=== PATIENT | female | born 1960 | race Caucasian/White ===

== ENCOUNTER → 2020-04-22 09:45 | Outpatient (CLI) | payer OTHER, SELFPAY | PROVIDERS: PCP Family Medicine; Referring Provider Family Medicine; Visit Provider Family Medicine | DX: Z20.828 Contact with and (suspected) exposure to other viral communicable diseases (principal) | CPT/HCPCS: 87635; C9803; U0003 ==

== ENCOUNTER 2020-09-25 12:27 | Emergency (ER) | payer OTHER, SELFPAY ==
[2020-09-25 12:29] VITALS: BP 151/82; PULSE 82; RESP 16; TEMP 36.9; O2SAT 98; BMI 37.4
--- NOTE | 2020-09-25 12:52 | CT_ITS ---
STUDY: CT ABDOMEN AND PELVIS WITH CONTRAST REASON FOR EXAM: Female, 60 years old. Abdominal pain RADIATION DOSAGE (If Supplied By Facility): CTDIvol = ( 16.59 ) mGy, DLP = ( 1150.83 ) mGycm TECHNIQUE: CT images were obtained from the dome of the diaphragm to the symphysis pubis without oral contrast. Oral and amp; IV Gastrografin and amp; 100mL Isovue-370 was administered. Sagittal and coronal images were reconstructed. Individualized dose optimization techniques were used for this CT. COMPARISON: None. FINDINGS: The visualized lung bases are unremarkable. The visualized portions of the heart are within normal limits. Normal liver with a benign 1 cm cyst in segment 8. Gallbladder is removed. Normal spleen. Normal pancreas. Normal bilateral adrenal glands. Normal right kidney. Normal left kidney. There is no intestinal obstruction. There is moderately extensive diverticulitis of the proximal sigmoid without abscess. Appendix is not seen. Normal abdominal aorta. Normal inferior vena cava. Normal retroperitoneum. Normal urinary bladder. Normal abdominal wall. 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 CT/Abdomen/Pelvis WITH Contrast IMPRESSION: Sigmoid diverticulitis without abscess. Electronically Signed: Rhonda Neely MD at 15:38 EDT Tel , Service support ,
--- NOTE | 2020-09-25 12:55 | ED.DCSUM_ITS ---
- ER Visit Summary Date of Service: 09/25/20 Chief Complaint: Abdominal pain History of Present Illness: The patient is a 60 F who presents with lower abdominal pain that began yesterday. Patient states it is gradually gotten worse. Patient states the pain is been constant. Patient states the pain is mostly aching. Patient states it has been sharp at times. Patient states it is worse with urination and worse when she has a bowel movement. Patient admits to nausea but denies any vomiting. Patient denies any hematemesis. Patient denies any diarrhea, melena, or hematochezia. Patient states she has pain in her lower abdomen when she urinates. Patient denies any hematuria or urinary frequency. Patient states she felt like she had a fever yesterday. Patient states the pain radiates into her back. Patient states she thought she was having a urinary tract infection and went to urgent care. Patient was then referred to the emergency department. Physical Examination: Vital signs are stable. Patient is afebrile. Patient is in no acute distress. Oral mucosa is pink and moist. Neck is supple. Trachea is midline. There is no JVD. Heart was regular rate and rhythm. Lungs are clear and equal bilaterally. Abdomen is soft. Bowel sounds are normal. There is diffuse tenderness but worse in the lower abdomen. There is no rebound or guarding noted. Cranial nerves II through XII are intact. There are no focal motor or sensory deficits noted. Test Results: CBC and comprehensive metabolic profile were obtained and were essentially within normal limits. Urinalysis was normal. Lipase was normal. CT scan of the abdomen and pelvis was obtained. There is diverticulitis of the sigmoid colon. There is no abscess or perforation. This was interpreted by the radiologist and reviewed by myself. Emergency Department Course and Treatment: Patient was given IV fluids, morphine, and Zofran. She was feeling better on reevaluation. Patient was given a dose of Cipro and Flagyl here. Patient was given prescriptions for Cipro and Flagyl. Patient was instructed to follow-up with her primary care physician in 5 to 7 days. Patient understood and was agreeable with the plan. All questions were answered. Disposition: Discharge home Impression: 1. Acute diverticulitis This note was generated with [facility] software. It may contain incorrect words, spelling, and punctuation that were not noted in review of the chart prior to signing ED Disposition - Plan for ED Patient: Disposition: Home or Assisted Living Diagnosis: Diverticulitis Instructions: ED Diverticulitis Prescriptions: Ciprofloxacin [Cipro] 500 mg PO BID #20 tab Transmission Status: Pending to [id number] metroNIDAZOLE [Flagyl] 500 mg PO Q6H #40 tablet Transmission Status: Pending to [facility]/pharmacy #[id number] Referrals: Ant Duval III, MD [Primary Care Provider] - 5-7 Days
[2020-09-25] MEDS: 0.9% Normal Saline 1,000 ML 1000 ML IV (13:02)
[2020-09-25] MEDS: Morphine 4 MG/ML Syringe IV (13:02)
[2020-09-25] MEDS: Ondansetron 4 MG/2 ML Vial IV (13:02)
[2020-09-25 13:07] LABS: Absolute Lymphocyte Count 1.81 X10^3/uL (0.83-4.51); Absolute Neutrophil Count 7.3 X10^3/uL (2.0-7.7); Basophil# 0.02 X10^3/uL; Basophil% 0.2 % (0-1); Eosinophil# 0.14 X10^3/uL; Eosinophils% 1.4 % (0-5); Hematocrit 39.6 % (37-47); Lymphocyte # 1.81 X10^3/ul (4.0); Lymphocyte % 18.4 % (19-41); Mean Corp Hgb Conc 32.8 g/dL (32-36); Mean Corpuscular Hgb 28.7 pg (27.0-32.0); Mean Corpuscular Volume 87.4 fL (81-99); Mean Platelet Vol. 10.9 fl (6.2-12.0); Monocyte# 0.56 X10^3/uL; Monocyte% 5.7 % (0-10); NRBC Flagged by Analyzer 0 % (0-5); Neutrophil # 7.28 X10^3/uL (2.7-7.7); Neutrophil % 73.8 % (47-70); Platelet Count 179 K/mm3 (150-450); RBC Distribution Width CV 13.1 % (11.6-14.6); RBC Distribution Width SD 42.3 fl (35.1-43.9); Red Blood Count 4.53 M/mm3 (4.2-5.4); White Blood Count 9.9 K/mm3 (4.4-11.0)
[2020-09-25 13:23] LABS: AST(SGOT) 9 U/L (15-37); Alanine Aminotransfer ALT/SGPT 21 U/L (13-56); Albumin, Serum 3.6 g/dL (3.2-5.0); Alkaline Phosphatase 75 U/L (45-117); Anion Gap 8 (5-15); BUN 9 mg/dL (7-18); BUN/Creat Ratio 12.9 RATIO (10-20); Chloride 107 mmol/L (98-107); EST Glomerular Filtration Rate 91 mL/min (>60); Est Glom Filt Rate - Afr Amer 110 mL/min (>60); Estimated Creatinine Clearance 64.49 ml/min; Globulin 3.6 g/dL (2.2-4.2); Glucose 106 mg/dL (74-106); Lipase 69 U/L (73-393); Potassium 3.6 mmol/L (3.5-5.1); Protein, Total 7.2 g/dL (6.4-8.2); Sodium Level 142 mmol/L (136-145)
[2020-09-25 14:24] LABS: Bacteria 0 SEEN /hpf (None Seen); Mucous, Urine 0 SEEN /hpf (<or=2+); Red Blood Cells-Urine 0 SEEN /hpf (0-5); Squamous Epithelial Cells - UA 0 SEEN /hpf (5-10); White Blood Cells 0 SEEN /hpf (0-5)
[2020-09-25 14:30] LABS: Color, Urine Yellow (Yellow); Glucose, Dipstick Normal (Normal); Ketone-Dipstick Negative (Negative); Leukocyte Esterase-Dipstick Negative /ul (Negative); Nitrite-Dipstick Negative (Negative); Occult Blood-Urine Negative /ul (Negative); Protein-Dipstick Negative (Negative); Urine Bilirubin Dipstick Negative (Negative); Urine Clarity Clear (Clear); Urine Urobilinogen Normal (Normal); Urine pH 6.5 (5.0 - 8.0)
[2020-09-25] MEDS: Ciprofloxacin 500 MG Tablet PO (16:33)
[2020-09-25] MEDS: metroNIDAZOLE 500 MG Tablet PO (16:33)
[2020-09-25 16:37] VITALS: BP 140/76; PULSE 66; RESP 18; TEMP 35.5
== END 2020-09-25 16:37 | disposition home or self-care (01) ==
PROVIDERS: Emergency Provider Emergency Medicine; PCP Family Medicine
DX: K57.32 Diverticulitis of large intestine without perforation or abscess without bleeding (principal); E66.9 Obesity, unspecified; I10 Essential (primary) hypertension; Z79.899 Other long term (current) drug therapy
CPT/HCPCS: 74177; 80053; 81001; 83690; 85025; 96361; 96374; 96375; 99284; J7030; Q9967; A4216; J2405

== ENCOUNTER 2022-09-30 12:53 | Emergency (ER) | payer OTHER, SELFPAY ==
[2022-09-30 12:54] VITALS: BP 172/82; PULSE 103; RESP 18; TEMP 36.4; O2SAT 96; BMI 38.4
--- NOTE | 2022-09-30 13:04 | CT_ITS ---
STUDY: CT Abdomen And Pelvis W/ Contrast Injection 09/30/2022 3:07 PM REASON FOR EXAM: Female, 62 years old. LOWER ABD PAIN. PT SEEN AT URGENT CARE FOR POSSIBLE UTI pain llq abdominal pain Individualized dose optimization techniques were used for this CT. COMPARISON: 09.25.20. TECHNIQUE: CT Abdomen And Pelvis W/ Contrast Injection IV 100mL Isovue-370 FINDINGS: There are atherosclerotic calcifications of visualized coronary arteries. The visualized portions of the heart are within normal limits. Stable hypodensity of the right lobe of the liver. There are surgical clips in the gallbladder fossa consistent with a prior cholecystectomy. Normal spleen. Normal pancreas. Normal bilateral adrenal glands. No acute findings of the right kidney. No acute findings of the left kidney. Normal visualized stomach. Normal small intestine. There is diverticulosis, with thickening of the colon wall, and pericolonic inflammation changes consistent with acute diverticulitis. This is near the recto sigmoid anastomosis. There is non-visualization of the appendix. There are calcifications of the abdominal aorta. This is consistent for atherosclerotic disease. There is NO abdominal aortic aneurysm. Vascular workup can be obtained based on clinical correlation. Normal inferior vena cava. Subcentimeter mesenteric lymph nodes. Normal urinary bladder. Normal visualized uterus.Two screws in the left acetabulum. There is an umbilical hernia containing fat. There are diffuse degenerative changes of the visualized lumbar spine. There is bilateral neural foraminal stenosis at L4-5 and L5-S1. CT/Abdomen/Pelvis W IV Cont ONLY IMPRESSION: (NOT LISTED IN ORDER OF SIGNIFICANCE) There is acute diverticulitis of the sigmoid colon. Other findings as above. Electronically Signed: Mike Quezada MD at 15:12 EDT ,
--- NOTE | 2022-09-30 13:06 | EDS_ITS ---
HPI HPI - GI History of Present Illness Chief Complaint: Abd Pain Narrative Narrative: 62-year-old female presenting with abdominal pain. She states that the lower abdominal and its in the middle. She has a history of recurrent diverticulitis in the past. She has had partial colectomy of the segment. She reports that she has had C. difficile since that surgery. She states that surgery was performed with Dr. carlos. She has not had any diarrhea or constipation. No fever. She does feel like she has the chills. Patient states she can was concerned she had a UTI and went to urgent care where they tested her urine and stated she did not have a UTI. She was referred to the ER due to ongoing abdominal pain [facility] Home Medications atorvastatin 20 mg tablet 20 mg PO QHS 05/31/16 [History Last Taken 05/30/16 22:00] aspirin 81 mg chewable tablet 81 mg PO DAILY@0800 09/25/20 [History Last Taken Unknown] ciprofloxacin HCl 500 mg tablet 500 mg PO BID #20 TABLETS 09/25/20 [Rx Last Taken Unknown] estradiol 1 mg tablet 1 mg PO DAILY 09/25/20 [History Last Taken Unknown] losartan 25 mg tablet 25 mg PO BID 09/25/20 [History Last Taken Unknown] medroxyprogesterone 2.5 mg tablet 2.5 mg PO DAILY 09/25/20 [History Last Taken Unknown] metronidazole 500 mg tablet 500 mg PO Q6H #40 tabs 09/25/20 [Rx Last Taken Unknown] sertraline 100 mg tablet 100 mg PO QHS 09/25/20 [History Last Taken Unknown] vitamin B complex 1 tablet PO DAILY 09/25/20 [History Last Taken Unknown] ciprofloxacin HCl 500 mg tablet (Cipro) 500 mg PO BID #20 tabs 09/30/22 [Rx Last Taken Unknown] metronidazole 500 mg tablet 500 mg PO Q8H 10 days #30 tabs 09/30/22 [Rx Last Taken Unknown] Allergy/AdvReac Type Severity Reaction Status Date / Time acetaminophen AdvReac Vomiting Verified 09/30/22 12:56 [From Darvocet-N] codeine AdvReac Nausea Verified 09/30/22 12:56 lisinopril AdvReac Other Verified 09/30/22 12:56 nabumetone [From Relafen] AdvReac Upset Verified 09/30/22 12:56 Stomach propoxyphene napsylate AdvReac Vomiting Verified 09/30/22 12:56 [From Brittanyt-N] Social History Smoking Status: Former smoker ROS ROS ED Constitutional Constitutional ED: Reports chills; Denies fever(s) ENT ENT ED: Denies rhinorrhea or sore throat Cardiovascular Cardiovascular: Denies chest pain or palpitations Respiratory/Chest Respiratory/Chest: Denies cough or dyspnea Gastrointestinal Gastrointestinal: Reports abdominal pain; Denies constipation, diarrhea, nausea or vomiting Genitourinary Genitourinary ED: Denies dysuria Musculoskeletal Musculoskeletal: Denies arthralgias Integumentary Denies abscess or Abrasions Neurologic Neurologic: Denies headache(s) or paresthesias Psychiatric Psychiatric: Denies anxiety or depression EXAM Physical Exam Const Vital Signs: 09/30/22 12:54 09/30/22 15:25 Temperature 97.6 F L Temperature Source Temporal Pulse Rate 103 H 96 Respiratory Rate 18 18 Blood Pressure 172/82 H 142/70 H Blood Pressure Mean 112 94 Pulse Ox 96 98 Oxygen Delivery Method Room Air Room Air Positive well nourished General Appearance ED: NAD HEENT Reports moist mucous membranes normocephalic and atraumatic Eyes PERRL and EOMs intact bilaterally Resp normal respiratory effort Cardio regular rate Rate: tachycardic GI Palpation: tender periumbilical and other (Suprapubic) Back/Spine no CVA tenderness Neuro CN's II-XII intact bilaterally and moves all extremities Motor Exam: strength 5/5 throughout Psych mental status grossly normal Skin no wounds MDM MDM MDM Narrative Medical decision making narrative: Patient presenting with lower abdominal pain. Differential includes but is not limited to appendicitis, diverticulitis, small bowel obstruction, constipation, urinary tract infection. IV was established. Patient given 1 L normal saline patient is tachycardic. Morphine and Zofran were given. CBC to assess white blood cell count, hemoglobin, platelets, differential. CMP to assess liver function, renal function, glucose, anion gap, electrolytes. Urinalysis to assess for UTI. Patient will need a CT scan of the abdomen pelvis. CBC CBC within normal limits. CMP shows slight hypokalemia with potassium 3.3. Total bilirubin slightly elevated 1.6. Other LFTs are normal. CT of the abdomen pelvis shows uncomplicated diverticulitis. Patient states she usually has to use Cipro and Flagyl because Augmentin does not work. She was started on this in the ED. Return precautions were discussed. Impression: 1. Acute diverticulitis Lab Data Labs: Laboratory Results - last 24 hr 09/30/22 09/30/22 09/30/22 13:10 13:35 13:35 WBC 9.0 RBC 4.54 Hgb 12.8 Hct 39.1 MCV 86.1 MCH 28.2 MCHC 32.7 RDW Std Deviation 42.9 RDW Coeff of Kourtney 13.7 Plt Count 160 MPV 10.7 Immature Gran % (Auto) 0.400 Neut % (Auto) 83.5 H Lymph % (Auto) 10.3 L Vilas % (Auto) 4.7 Eos % (Auto) 0.9 Baso % (Auto) 0.2 Absolute Neuts (auto) 7.5 Absolute Lymphs (auto) 0.92 Nucleated RBC % 0 Sodium 138 Potassium 3.3 L Chloride 105 Carbon Dioxide 28.0 Anion Gap 5 BUN 8 Creatinine 0.64 Estim Creat Clear Calc 68.77 Est GFR (MDRD) Af Amer 120 Est GFR (MDRD) Non-Af 99 BUN/Creatinine Ratio 12.4 Glucose 101 Calcium 9.0 Total Bilirubin 1.60 H AST 11 L ALT 23 Alkaline Phosphatase 78 Total Protein 7.3 Albumin 4.0 Globulin 3.3 Albumin/Globulin Ratio 1.2 Urine Color Yellow Urine Clarity Clear Urine pH 7.0 Ur Specific Haiku 1.010 Urine Protein Negative Urine Glucose (UA) Normal Urine Ketones Negative Urine Occult Blood Negative Urine Nitrite Negative Urine Bilirubin Negative Urine Urobilinogen Normal Ur Leukocyte Esterase Negative Urine RBC 0 SEEN Urine WBC 0 SEEN Ur Squamous Epith Cells 5-10 SEEN Urine Bacteria 0 SEEN Urine Mucus 0 SEEN Radiography Diagnostic Testing: Clinical Impression(s) from Imaging Studies Abdomen/Pelvis CT 09/30/22 13:04 IMPRESSION: (NOT LISTED IN ORDER OF SIGNIFICANCE) There is acute diverticulitis of the sigmoid colon. Other findings as above. Electronically Signed: Mike Quezada MD at 15:12 EDT , Discharge Plan Triage Chief Complaint: Abd Pain ED Provider: Gordy Parker Dx/Rx/DC Orders Clinical Impression: Diverticulitis Instructions: ED Diverticulitis Prescriptions: New ciprofloxacin HCl [Cipro] 500 mg tablet 500 mg PO BID Qty: 20 0RF metronidazole 500 mg tablet 500 mg PO Q8H 10 Days Qty: 30 0RF No Action atorvastatin 20 MG tablet 20 mg PO QHS Label Comments: Cholesterol medroxyprogesterone 2.5 MG tablet 2.5 mg PO DAILY sertraline 100 MG tablet 100 mg PO QHS estradiol 1 MG tablet 1 mg PO DAILY losartan 25 MG tablet 25 mg PO BID aspirin 81 MG tablet,chewable 81 mg PO DAILY@0800 vitamin B complex 1 EACH capsule 1 tablet PO DAILY ciprofloxacin HCl 500 MG tablet 500 mg PO BID Qty: 20 0RF metronidazole 500 MG tablet 500 mg PO Q6H Qty: 40 0RF Primary Care Provider: Harish Osborne Referrals: Alexandro Carlos MD [Med Staff - Active Staff] - 3-5 Days Harish Osborne MD [Primary Care Provider] - Disposition Disposition: Home, Self Care Discharge Date/Time: 09/30/22 16:23
[2022-09-30 13:14] LABS: Bacteria 0 SEEN /hpf (None Seen); Mucous, Urine 0 SEEN /hpf (<or=2+); Red Blood Cells-Urine 0 SEEN /hpf (0-5); White Blood Cells 0 SEEN /hpf (0-5)
[2022-09-30] MEDS: Morphine 4 MG/ML Syringe IV (13:16)
[2022-09-30] MEDS: Ondansetron 4 MG/2 ML Vial IV (13:16)
[2022-09-30] MEDS: 0.9% Normal Saline 1,000 ML 1000 ML IV (13:18)
[2022-09-30 13:20] LABS: Color, Urine Yellow (Yellow); Glucose, Dipstick Normal (Normal); Ketone-Dipstick Negative (Negative); Leukocyte Esterase-Dipstick Negative /ul (Negative); Nitrite-Dipstick Negative (Negative); Occult Blood-Urine Negative /ul (Negative); Protein-Dipstick Negative (Negative); Urine Bilirubin Dipstick Negative (Negative); Urine Clarity Clear (Clear); Urine Urobilinogen Normal (Normal)
[2022-09-30 13:26] LABS: Squamous Epithelial Cells - UA 5-10 SEEN /hpf (5-10)
[2022-09-30 13:43] LABS: Absolute Lymphocyte Count 0.92 X10^3/uL (0.83-4.51); Absolute Neutrophil Count 7.5 X10^3/uL (2.0-7.7); Basophil# 0.02 X10^3/uL; Basophil% 0.2 % (0-1); Eosinophil# 0.08 X10^3/uL; Eosinophils% 0.9 % (0-5); Hematocrit 39.1 % (37-47); Hemoglobin 12.8 g/dL (12.0-15.0); Lymphocyte # 0.92 X10^3/ul (0.83-4.51); Lymphocyte % 10.3 % (19-41); Mean Corp Hgb Conc 32.7 g/dL (32-36); Mean Corpuscular Hgb 28.2 pg (27.0-32.0); Mean Corpuscular Volume 86.1 fL (81-99); Mean Platelet Vol. 10.7 fl (6.2-12.0); Monocyte# 0.42 X10^3/uL; Monocyte% 4.7 % (0-10); NRBC Flagged by Analyzer 0 % (0-5); Neutrophil # 7.47 X10^3/uL (2.7-7.7); Neutrophil % 83.5 % (47-70); Platelet Count 160 K/mm3 (150-450); RBC Distribution Width CV 13.7 % (11.6-14.6); RBC Distribution Width SD 42.9 fl (35.1-43.9); Red Blood Count 4.54 M/mm3 (4.2-5.4)
[2022-09-30 13:55] LABS: ALB/GLOB Ratio 1.2 RATIO (0.9-2.4); AST(SGOT) 11 U/L (15-37); Alanine Aminotransfer ALT/SGPT 23 U/L (13-56); Alkaline Phosphatase 78 U/L (45-117); Anion Gap 5 (5-15); BUN 8 mg/dL (7-18); BUN/Creat Ratio 12.4 RATIO (10-20); Chloride 105 mmol/L (98-107); Creatinine, Serum 0.64 mg/dL (0.55-1.02); EST Glomerular Filtration Rate 99 mL/min (>60); Est Glom Filt Rate - Afr Amer 120 mL/min (>60); Estimated Creatinine Clearance 68.77 ml/min; Globulin 3.3 g/dL (2.2-4.2); Glucose 101 mg/dL (74-106); Potassium 3.3 mmol/L (3.5-5.1); Protein, Total 7.3 g/dL (6.4-8.2); Sodium Level 138 mmol/L (136-145)
[2022-09-30 15:25] VITALS: BP 142/70; PULSE 96; RESP 18; O2SAT 98
[2022-09-30] MEDS: metroNIDAZOLE 500 MG Tablet PO (16:10)
[2022-09-30] MEDS: Ciprofloxacin 500 MG Tablet PO (16:10)
== END 2022-09-30 16:23 | disposition home or self-care (01) ==
PROVIDERS: Emergency Provider Student in an Organized Health Care Education/Training Program; PCP Family Medicine; Visit Provider Student in an Organized Health Care Education/Training Program
DX: K57.32 Diverticulitis of large intestine without perforation or abscess without bleeding (principal); E87.6 Hypokalemia; Z87.891 Personal history of nicotine dependence; Z90.49 Acquired absence of other specified parts of digestive tract
CPT/HCPCS: 74177; 80053; 81001; 85025; 96361; 96374; 96375; 99284; J7030; Q9967; A4216; J2405

== ENCOUNTER 2022-12-11 08:49 | Day surgery (SDC) | payer OTHER, SELFPAY ==
[2022-12-11] VITALS (7 sets, daily range): BP systolic 106–131; BP diastolic 54–66; PULSE 18–71; RESP 16–96; TEMP 36.7–37.1; O2SAT 70–100; BMI 36.6
[2022-12-11] MEDS: Lactated Ringers 1,000 ML 15 ML IV (09:25)
--- NOTE | 2022-12-11 09:35 | PCM.HP.BLA ---
History and Physical Date of Admission: 12/11/22 [facility] Required: No Is patient in pain?: No Allergies acetaminophen [From Darvocet-N] Adverse Reaction (Verified 11/05/22 08:44) Vomitingcodeine Adverse Reaction (Verified 11/05/22 08:44) Nausealisinopril Adverse Reaction (Verified 11/05/22 08:44) Othernabumetone [From Relafen] Adverse Reaction (Verified 11/05/22 08:44) Upset Stomachpropoxyphene napsylate [From Darvocet-N] Adverse Reaction (Verified 11/05/22 08:44) Vomiting Medications atorvastatin 20 mg tablet 20 mg PO QHS 05/31/16 [History Confirmed 11/05/22] aspirin 81 mg chewable tablet 81 mg PO DAILY@0800 09/25/20 [History Confirmed 11/05/22] estradiol 1 mg tablet 1 mg PO DAILY 09/25/20 [History Confirmed 11/05/22] losartan 25 mg tablet 25 mg PO BID 09/25/20 [History Confirmed 11/05/22] medroxyprogesterone 2.5 mg tablet 2.5 mg PO DAILY 09/25/20 [History Confirmed 11/05/22] sertraline 100 mg tablet 100 mg PO QHS 09/25/20 [History Confirmed 11/05/22] vitamin B complex 1 tablet PO DAILY 09/25/20 [History Confirmed 11/05/22] cholecalciferol (vitamin D3) 50 mcg (2,000 unit) capsule 50 mcg PO DAILY 11/05/22 [History Confirmed 11/05/22] PFSH Medical History?(Updated 11/05/22 @ 08:42 by Keysha Barrera) Broken tooth-uncomplic Surgical History?(Updated 11/05/22 @ 08:42 by Keysha Barrera) S/P appendectomy S/P colectomy S/P laparoscopic cholecystectomy Status post hip surgery Family History?(Updated 11/05/22 @ 08:43 by Keysha Barrera) Aunt Breast cancerGrandmother DiabetesMother HypertensionFather Hypertension Social History? Smoking Status:? Former smoker HPI HPI HPI: 62-year-old female is being referred by Dr. Harish Osborne for surgical consultation regarding abdominal pain and a previous history of diverticulitis for which I have assisted her with a previous colectomy.? On September 30, 2022 at the [facility] she had a CT scan and evaluation of acute abdominal pain and that was felt to demonstrate diverticulitis.? At that time her white blood cell count was normal at 9 with a hemoglobin of 12.8 and hematocrit of 39.1 and a platelet count of 160,000.? There was a left shift with 83% neutrophils.? Potassium was low at 3.3.? BUN was normal at 8 and creatinine 0.64.? Urinalysis was not remarkable.? Records reveal a laparoscopic sigmoid colectomy with mobilization of the splenic flexure and a previous laparoscopic cholecystectomy dating back to April 28, 2008.? I have personally reviewed her CT images.? There is certainly evidence of transposition of her sigmoid: Now residing actually to the right of the midline.? Some inflammatory changes noted at the rectosigmoid anastomotic area.? Extensive diverticular disease of the remaining colon noted. Additionally make comment that she is got an abnormal mammogram she is supposed to establish a breast ultrasound done at the clinic She states she is immediately dropped back to clear liquids when she had the suspected diverticulitis.? She states that she is over 90% improved at this time.? The onset of the pain was September 29, 2022.? No fever.? No bright red blood per rectum or melena. ROS General General: No weight change, appetite, fatigue, colon cancer, breast cancer or weakness HEENT HEENT: No difficulty swallowing, eye injury, eye surgery, swollen glands or hoarseness Endo Endocrine: No thyroid disease, diabetes mellitus, thyroid cancer, Hair loss, heat intolerance or cold intolerance Skin Skin: No rash or changing moles Breast Breast: No left breast lump, right breast lump, nipple discharge, breast pain, abnormal mammogram, abnormal US or breast enlargement Musc Musculoskeletal: Yes arthritis; No back problems, rheumatoid arthritis, gout or joint pain Cardio Cardiovascular: Yes high blood pressure; No murmur, pacemaker, heart disease, atrial fibrillation, heart attack, heart stent, palpitations, shortness of breat with exertion or chest pain Psych Psychiatric: Yes anxiety; No depression or hearing voices Resp Respiratory: No shortness of breath, No sleep apnea, No cough, No COPD, No asthma, No emphysema and No wheezing Gastro Gastrointestinal: Yes abdominal pain, No nausea or vomiting, Yes diarrhea, Yes constipation, No blood in stool, Yes acid reflux, Yes hemorrhoids, No ulcers, No gallbladder problem and No black,tarry stools Darius Hematologic: Yes blood thinners, No blood disorders, No bleeding, No anemia and No blood clots Neuro Neurologic: No system reviewed and no additional complaints, except as documented, No as per HPI, No abnormal gait, No abnormal hearing, No abnormal movements, No abnormal speech, No behavioral changes, No burning sensations, No confusion, No convulsions, No disequilibrium, No dizziness, No localized weakness, No frequent falls, No headache(s), No lack of coordination, No loss of vision, No memory loss, Yes numbness, No other visual disturbances, No radicular pain, No restless legs, No sensory deficit, No syncope, Yes tingling, No tremor(s), No weakness and No other Exam Const General: cooperative and healthy appearing [facility] Head: normal to inspection Neck Neck: normal visual inspection Resp Effort & Inspection: normal respiratory effort Auscultation: clear to auscultation bilaterally Cardio Rate: regular rate Rhythm: regular rhythm GI Inspection: normal to inspection Palpation: soft Other: Very minimal tenderness to deep palpation suprapubically Musc Cervical Spine: normal cervical lordosis Skin General: no rashes or lesions noted Neuro General: patient alert and patient awake Assessment and Plan Assessment and Plan (1) Diverticulitis: ?Status:?Chronic (2) GERD (gastroesophageal reflux disease): ?Status:?Acute (3) Essential hypertension: ?Status:?Acute (4) Psoriasis: ?Status:?Chronic (5) Pneumonia: ?Status:?Acute Plan I recommended the patient a colonoscopy with possible biopsy or polypectomy as indicated.? We will have her hold her aspirin for 5 days.? Previous colonoscopy was over 10 years ago.? She is aware of technique, benefit, risk, alternatives.? She has had an opportunity to ask and have questions answered.? We will schedule procedure at her discretion. By report the patient states that she has had abnormal mammogram is supposed to schedule her a breast ultrasound.? I have encouraged her to do that. She does have a pelvic anastomosis.? She is instructed that for any bouts of recurrent pain she should immediately decrease to a clear liquid diet and because of the location risk-benefit level would be pertinent for her to initiate oral antibiotics at that time as well.? She is at risk for having perforation or abscess and then that likely would require a colostomy which might be temporary but also could be a permanent event. She has had an opportunity to ask and have questions answered.? We will schedule procedure at her discretion. If she needs or wants assistance with her breast she certainly can contact me at her convenience. Note that since the patient's office visit she developed acute reflux symptoms. Per her primary care she was placed on omeprazole therapy and we received contact requesting that we add a esophagogastroduodenoscopy to the patient's colonoscopy. She has had an opportunity to ask and have questions answered. We will proceed as noted. Copy: Dr. Harish Duval M.D., F.A.C.S.
--- NOTE | 2022-12-11 10:00 | EGD_PTH ---
PATIENT: ELFEGO GAINES LOC: EN U#:[id number] AGE/SX: 62/F ROOM: RE12/11/[address]: Dr. Alexandro Duval MD : 1960 BED: DIS: 12/11/2022 SPEC #: [id number] RECD: 12/11/22 11:35 STATUS: TERI MEENAKSHI #: [id number] BENNY: 12/11/22 10:[address]: Alexandro Duval DEPT: SURGICAL PATHOLOGY RECD BY: Malena Morrow ENTERED: 12/11/22 12:30 SP TYPE: EGD BIOPSY OT DR: Dr. Harish Osborne MD Tissues: A - Gastric mucous membrane B - Esophagus, NOS C - Esophagus, NOS D - Esophagus, NOS Procedures: Special Stain Group II Surgery Specimen Level IV Alcian Blue/PAS (control) HEADER OPERATION: Colonoscopy, EGD with biopsies (MAC) PRE-OP DIAGNOSIS: Diverticulitis, GERD TISSUE SUBMITTED: A ? Antrum biopsy for H. pylori and path, B ? Greater curvature polyp biopsy, C ? Distal esophagus biopsy, D ? Mid esophagus biopsy MICROSCOPIC DIAGNOSIS A. Antrum, biopsy: Mild gastritis. See microscopic description and comment. B. Greater curvature polyp, biopsy: Fundic gland polyp. C. Distal esophagus, biopsy: Fragments of gastroesophageal mucosa with mild chronic inflammation. Intestinal metaplasia (goblet cell metaplasia) not identified. See comment. D. Mid esophagus, biopsy: Fragments of squamous epithelium with mild chronic inflammation. SJ:aaron 12/12/2022 COMMENT A. The results of immunohistochemistry for Helicobacter pylori will be reported separately ([id number]). C. Alcian blue/PAS stain with matched control is used in the evaluation of the specimen. The specimen predominantly consists of squamous mucosa. MICROSCOPIC DESCRIPTION Slides are reviewed. A. The specimen shows fragments of gastric mucosa with chronic inflammatory cell infiltrates in the lamina propria consisting of lymphocytes and plasma cells, consistent with mild chronic gastritis. GROSS DESCRIPTION A - Received in fixative is one container labeled with the patient's name and designated antrum biopsy. The specimen consists of one irregular fragment of light campbell soft tissue that measures 0.6 x 0.2 x 0.1 cm. The specimen is totally submitted in one cassette. B - Received in fixative is one container labeled with the patient's name and designated greater curvature polyp biopsy. The specimen consists of one irregular fragment of light campbell soft tissue that measures 0.3 x 0.3 x 0.1 cm. The specimen is totally submitted in one cassette. C - Received in fixative is one container labeled with the patient's name and designated distal esophagus biopsy. The specimen consists of multiple irregular fragments of light campbell soft tissue that in aggregate measure 1.0 x 0.3 x 0.1 cm. The specimen is totally submitted in one cassette. D - Received in fixative is one container labeled with the patient's name and designated mid esophagus biopsy. The specimen consists of two irregular fragments of light campbell soft tissue that in aggregate measure 0.5 x 0.3 x 0.1 cm. The specimen is totally submitted in one cassette. / SJ:rg 12/11/2022 TC:3 CPT: 97950 x4, [id number]
--- NOTE | 2022-12-11 10:00 | IMM_PTH ---
PATIENT: ELFEGO GAINES LOC: EN U#:[id number] AGE/SX: 62/F ROOM: RE12/11/[address]: Dr. Alexandro Duval MD : 1960 BED: DIS: 12/11/2022 SPEC #: [id number] RECD: 12/11/22 12:52 STATUS: TERI REQ #: [id number] BENNY: 12/11/22 10:[address]: Alexandro Duval DEPT: IMMUNOHISTOCHEMISTRY RECD BY: Tonya Crisostomo ENTERED: 12/11/22 12:54 SP TYPE: IMMUNO OTHR DR: Dr. Harish Osborne MD Tissues: A - Stomach, NOS Procedures: H Pylori (initial) PHYSICIAN & INSTITUTION [place] [id number] SPECIMEN INFORMATION: Tissue Source: A ? Antrum biopsy Clinical Info: Diverticulitis, GERD Specimen Number: [id number] CPT code: 19975 METHODOLOGY: Deparaffinized sections of prefer/formalin-fixed tissue or PAP/DQ stained slides are incubated with monoclonal/polyclonal antibodies/oligonucleotide probes. Localization is made via biotin free immunoperoxidase method. Appropriate controls are performed and reacted as expected. Results on target cell population are indicated in the following table: RESULTS: ANTIBODY / CLONE RESULT Block A H Pylori (polyclonal) negative These tests were developed and their performance characteristics determined by [facility]. They may not have been cleared or approved by the U.S. Food and Drug Administration. The FDA has determined that such clearance or approval is not necessary. The above immunohistochemical/dualISH markers are ordered and reviewed by the Pathologist. INTERPRETATION: A. Antrum, biopsy: Negative for Helicobacter pylori organisms. SJ:aaron 12/12/2022
--- NOTE | 2022-12-11 10:50 | OP.CCLET_ITS ---
12/11/2022 Harish Osborne Re : Upper GI endoscopy procedure for Breann Florian Dylon This procedure was performed on Sunday, December 11, 2022. My impressions and recommendations are as follows: Impressions : - Small hiatal hernia. - Z-line regular, 38 cm from the incisors. Biopsied. - Normal middle third of esophagus. Biopsied. - Erythematous mucosa in the antrum. Biopsied. - Normal examined duodenum. Recommendations : - Discharge patient to home. - Resume previous diet. - Continue present medications. - Telephone my office for pathology results in 1 week. With current findings I would anticipate that medical treatment should be appropriate. My findings are described in the full procedure note, which is enclosed. If I can be of further assistance, please feel free to contact me at Doctor phone number(s): Work: . Sincerely, Alexandro Duval MD 12/11/2022 10:49:47 AM This report has been signed electronically.
--- NOTE | 2022-12-11 10:50 | OP.EGD_ITS ---
Patient Name: Breann Walker Procedure Date: 12/11/2022 10:16 AM Date of : 1960 Age: 62 Procedure: Upper GI endoscopy Indications: Heartburn Providers: Alexandro Duval MD Referring MD: Alexandro Duval MD Medicines: See the Anesthesia note for documentation of the administered medications Complications: No immediate complications. Procedure: Pre-Anesthesia Assessment: - Prior to the procedure, a History and Physical was performed, and patient medications and allergies were reviewed. The patient's tolerance of previous anesthesia was also reviewed. The risks and benefits of the procedure and the sedation options and risks were discussed with the patient. All questions were answered, and informed consent was obtained. Prior Anticoagulants: The patient has taken no previous anticoagulant or antiplatelet agents. ASA Grade Assessment: II - A patient with mild systemic disease. After reviewing the risks and benefits, the patient was deemed in satisfactory condition to undergo the procedure. After obtaining informed consent, the endoscope was passed under direct vision. Throughout the procedure, the patient's blood pressure, pulse, and oxygen saturations were monitored continuously. The was introduced through the mouth, and advanced to the second part of duodenum. The upper GI endoscopy was accomplished without difficulty. The patient tolerated the procedure well. Scope In: 10:25:49 AM Scope Out: 10:32:31 AM Total Procedure Duration Time 0 hours 6 minutes 42 seconds Findings: A small hiatal hernia was present. The Z-line was regular and was found 38 cm from the incisors. Biopsies were taken with a cold forceps for histology. The middle third of the esophagus was normal. Biopsies were taken with a cold forceps for histology. Diffuse mildly erythematous mucosa without bleeding was found in the gastric antrum. Biopsies were taken with a cold forceps for histology. The examined duodenum was normal. A few polyps with no bleeding were found. The polyp was removed with a cold biopsy forceps. Resection and retrieval were complete. Impression: - Small hiatal hernia. - Z-line regular, 38 cm from the incisors. Biopsied. - Normal middle third of esophagus. Biopsied. - Erythematous mucosa in the antrum. Biopsied. - Normal examined duodenum. Recommendation: - Discharge patient to home. - Resume previous diet. - Continue present medications. - Telephone my office for pathology results in 1 week. With current findings I would anticipate that medical treatment should be appropriate. Procedure Code(s): --- Professional --- 31335, Esophagogastroduodenoscopy, flexible, transoral; with biopsy, single or multiple Diagnosis Code(s): --- Professional --- K44.9, Diaphragmatic hernia without obstruction or gangrene K31.89, Other diseases of stomach and duodenum R12, Heartburn CPT copyright 2017 [employer]. All rights reserved. The codes documented in this report are preliminary and upon auditing coder review may be revised to meet current compliance requirements. Alexandro Duval MD 12/11/2022 10:49:47 AM This report has been signed electronically. Number of Addenda: 0 Note Initiated On: 12/11/2022 10:16 AM
--- NOTE | 2022-12-11 10:54 | OP.COLON_ITS ---
Patient Name: Breann Walker Procedure Date: 12/11/2022 10:32 AM Date of : 1960 Age: 62 Procedure: Colonoscopy Indications: Screening for colorectal malignant neoplasm Providers: Alexandro Duval MD Referring MD: Alexandro Duval MD Medicines: See the Anesthesia note for documentation of the administered medications Patient Profile: Last Colonoscopy: 2007. Complications: No immediate complications. Procedure: Pre-Anesthesia Assessment: - Prior to the procedure, a History and Physical was performed, and patient medications and allergies were reviewed. The patient's tolerance of previous anesthesia was also reviewed. The risks and benefits of the procedure and the sedation options and risks were discussed with the patient. All questions were answered, and informed consent was obtained. Prior Anticoagulants: The patient has taken no previous anticoagulant or antiplatelet agents. ASA Grade Assessment: II - A patient with mild systemic disease. After reviewing the risks and benefits, the patient was deemed in satisfactory condition to undergo the procedure. After I obtained informed consent, the scope was passed under direct vision. Throughout the procedure, the patient's blood pressure, pulse, and oxygen saturations were monitored continuously. The was introduced through the anus and advanced to the cecum, identified by appendiceal orifice and ileocecal valve. The colonoscopy was performed without difficulty. The patient tolerated the procedure well. The quality of the bowel preparation was good. The ileocecal valve and the appendiceal orifice were photographed. Scope In: 10:33:57 AM Scope Withdrawal Time 0 hours 6 minutes 9 seconds Scope Out: 10:43:31 AM Total Procedure Duration Time 0 hours 9 minutes 34 seconds Findings: The digital rectal exam findings include non-thrombosed external hemorrhoids, non-thrombosed internal hemorrhoids and internal hemorrhoids that prolapse with straining, but spontaneously regress to the resting position (Grade II). There was evidence of a prior end-to-end colo-colonic anastomosis in the distal sigmoid colon. This was patent and was characterized by healthy appearing mucosa. Multiple diverticula were found in the entire colon. Impression: - Non-thrombosed external hemorrhoids, non-thrombosed internal hemorrhoids and internal hemorrhoids that prolapse with straining, but spontaneously regress to the resting position (Grade II) found on digital rectal exam. - Patent end-to-end colo-colonic anastomosis, characterized by healthy appearing mucosa. 20 cm from dentate line - Diverticulosis in the entire examined colon. - No specimens collected. No signs of acute inflammation or edema or stricturing noted Recommendation: - Discharge patient to home. - Resume previous diet. - Continue present medications. - Repeat colonoscopy in 10 years for screening purposes. Procedure Code(s): --- Professional --- 01116, Colonoscopy, flexible; diagnostic, including collection of specimen(s) by brushing or washing, when performed (separate procedure) Diagnosis Code(s): --- Professional --- Z12.11, Encounter for screening for malignant neoplasm of colon K64.1, Second degree hemorrhoids K64.4, Residual hemorrhoidal skin tags Z98.0, Intestinal bypass and anastomosis status K57.30, Diverticulosis of large intestine without perforation or abscess without bleeding CPT copyright 2017 [employer]. All rights reserved. The codes documented in this report are preliminary and upon company miner blasting review may be revised to meet current compliance requirements. Alexandro Duval MD 12/11/2022 10:53:37 AM This report has been signed electronically. Number of Addenda: 0 Note Initiated On: 12/11/2022 10:32 AM
--- NOTE | 2022-12-11 10:54 | OP.CCLET_ITS ---
12/11/2022 Harish Osborne Re : Colonoscopy procedure for Breann Walker Dear Dylon This procedure was performed on Sunday, December 11, 2022. My impressions and recommendations are as follows: Impressions : - Non-thrombosed external hemorrhoids, non-thrombosed internal hemorrhoids and internal hemorrhoids that prolapse with straining, but spontaneously regress to the resting position (Grade II) found on digital rectal exam. - Patent end-to-end colo-colonic anastomosis, characterized by healthy appearing mucosa. 20 cm from dentate line - Diverticulosis in the entire examined colon. - No specimens collected. No signs of acute inflammation or edema or stricturing noted Recommendations : - Discharge patient to home. - Resume previous diet. - Continue present medications. - Repeat colonoscopy in 10 years for screening purposes. My findings are described in the full procedure note, which is enclosed. If I can be of further assistance, please feel free to contact me at Doctor phone number(s): Work: . Sincerely, Alexandro Duval MD 12/11/2022 10:53:37 AM This report has been signed electronically.
== END 2022-12-11 11:33 | disposition home or self-care (01) ==
LOC: EN 09:10 → AC 09:10
PROVIDERS: PCP Family Medicine; Referring Provider Family Medicine; Visit Provider Surgery
PROC: 0DJD8ZZ Inspection of Lower Intestinal Tract, Via Natural or Artificial Opening Endoscopic (ICD-10-PCS; CPT 45378; principal; 2022-12-11 09:55)
DX: Z12.11 Encounter for screening for malignant neoplasm of colon (principal); J18.9 Pneumonia, unspecified organism; K57.30 Diverticulosis of large intestine without perforation or abscess without bleeding; Z87.891 Personal history of nicotine dependence; I10 Essential (primary) hypertension; K64.4 Residual hemorrhoidal skin tags; K64.8 Other hemorrhoids; L40.9 Psoriasis, unspecified; K44.9 Diaphragmatic hernia without obstruction or gangrene; K21.00 Gastro-esophageal reflux disease with esophagitis, without bleeding; Z79.82 Long term (current) use of aspirin; Z79.899 Other long term (current) drug therapy; Z90.49 Acquired absence of other specified parts of digestive tract; K64.1 Second degree hemorrhoids; K29.70 Gastritis, unspecified, without bleeding; K31.7 Polyp of stomach and duodenum; E78.00 Pure hypercholesterolemia, unspecified; Z87.19 Personal history of other diseases of the digestive system
CPT/HCPCS: 43239; 45378; 88305; 88313; 88342; J7120; J2405

== ENCOUNTER 2023-10-12 11:02 | Inpatient (IN) | payer OTHER, SELFPAY ==
[2023-10-12] VITALS (8 sets, daily range): BP systolic 137–161; BP diastolic 62–82; PULSE 55–65; RESP 13–16; TEMP 36.1–37.1; O2SAT 95–99; BMI 37.2; BMI 37.1
--- NOTE | 2023-10-12 11:27 | CT_ITS ---
EXAM: CT ORBITS WITH INTRAVENOUS CONTRAST CLINICAL INDICATION: orbital cellulitis TECHNIQUE: Helically acquired images were obtained of the orbits. Multiplanar reformations were reviewed. Study was performed with intravenous contrast. This CT exam was performed using one or more of the following dose reduction techniques: automated exposure control, adjustment of the mA and/or kV according to patient size, and/or use of iterative reconstruction technique. CONTRAST: IV 100mL Isovue-370 COMPARISON: No relevant prior studies available. FINDINGS: ORBITS: Both globes are unremarkable. Extraocular muscles are normal. Retrobulbar fat appears unremarkable. No evidence of abscess. SINUSES: Extensive opacification of the paranasal sinuses. BONES/JOINTS: No suspicious lytic or blastic abnormality. SOFT TISSUES: Normal. No focal subcutaneous swelling. No discrete fluid collections. CT/Orb Sella Post Fossa Ear W/CON IMPRESSION: 1. Intact orbits. 2. Pansinusitis. Electronically Signed: Ren[place] Pa MD at 12:50 EDT ,
--- NOTE | 2023-10-12 11:51 | EDS_ITS ---
HPI <GREG Cohen - Last Filed: 10/12/23 14:31> History of Present Illness Chief Complaint: Eye Problem Narrative Narrative: Patient is a 63-year-old female with history of hypertension, lipidemia who presents to the emergency department for bilateral eye pain. Patient states her left eye started draining on of this last week. Notes approximately 3 days ago. Patient states that the redness went to the right eye, now patient has bilateral redness around each eye, she has some conjunctival pain, pain with moving her eyes as well as bilateral drainage. She states that she is having pain with light, feels generally unwell and is here for evaluation. Patient was placed on polymyxin drops. PFS <GREG Cohen - Last Filed: 10/12/23 14:31> [facility] Medical History Anemia Anxiety Arthritis Broken tooth-uncomplic Former smoker High cholesterol History of diverticulitis History of stress test Wears glasses Home Medications atorvastatin 20 mg tablet 20 mg PO QHS 05/31/16 [History Last Taken 10/11/23] estradiol 1 mg tablet 1 mg PO DAILY 09/25/20 [History Last Taken 10/12/23] medroxyprogesterone 2.5 mg tablet 2.5 mg PO DAILY 09/25/20 [History Last Taken 10/12/23] sertraline 100 mg tablet 150 mg PO QHS 09/25/20 [History Last Taken 10/11/23] vitamin B complex 1 tablet PO DAILY 09/25/20 [History Last Taken 10/12/23] cholecalciferol (vitamin D3) 50 mcg (2,000 unit) capsule 50 mcg PO DAILY 11/05/22 [History Last Taken 10/12/23] buspirone 10 mg tablet 10 mg PO TID 12/07/22 [History Last Taken 10/12/23] meloxicam 15 mg tablet 15 mg PO DAILY PRN pain 12/07/22 [History Last Taken Unknown] omeprazole 20 mg capsule,delayed release 20 mg PO DAILY 12/07/22 [History Last Taken 10/12/23] losartan 100 mg tablet 100 mg PO DAILY 10/12/23 [History Last Taken 10/12/23] metoprolol succinate 25 mg tablet,extended release 24 hr 25 mg PO BID high blood pressure 10/12/23 [History Last Taken 10/12/23] polymyxin B sulfate 10,000 unit-trimethoprim 1 mg/mL eye drops 1 drp ophthalmic (eye) DAILY 10/12/23 [History Last Taken 10/12/23] Allergy/AdvReac Type Severity Reaction Status Date / Time acetaminophen AdvReac Vomiting Verified 10/12/23 11:03 [From Darvocet-N] codeine AdvReac Nausea Verified 10/12/23 11:03 lisinopril AdvReac Other Verified 10/12/23 11:03 nabumetone [From Relafen] AdvReac Upset Verified 10/12/23 11:03 Stomach propoxyphene napsylate AdvReac Vomiting Verified 10/12/23 11:03 [From Darvocet-N] Family History Aunt Breast cancer Grandmother Diabetes Mother Hypertension Father Hypertension Surgical History S/P appendectomy S/P colectomy S/P laparoscopic cholecystectomy Status post hip surgery Social History (Updated 10/12/23 @ 11:12 by Haleigh Velasco) adopted: No current occupational status: employed Smoking Status: Former smoker alcohol intake: never substance use type: does not use ROS <GREG Cohen - Last Filed: 10/12/23 14:31> ROS ED ROS Narrative Constitutional: Negative for fever, weight loss, weakness. Positive for chills Eyes: Negative for vision loss, double vision. Positive for vision change, eye pain, photophobia, pain with movement ENT: Negative for any sore throat, ear pain, congestion Cardiovascular: Negative for any chest pain, tightness, palpitations Respiratory: Negative for any cough, sputum production, hemoptysis, dyspnea, dyspnea on exertion, orthopnea Gastrointestinal: Negative for any abdominal pain, nausea, vomiting, diarrhea, constipation, blood in stool, blood in vomit : Negative for any urinary frequency, dysuria, retention, blood in urine Muscle skeletal: Negative for any neck pain, back pain Neurological: Negative for any headache, syncope, dizziness Skin: Negative for any rashes, itching, abrasions, lacerations Psychiatric: Negative for any depression, anxiety, stress, suicidal ideation, homicidal ideation Hematologic: Negative for any excessive bruising, easy bleeding EXAM <GREG Cohen - Last Filed: 10/12/23 14:31> Physical Exam Narrative Exam Narrative: Vital signs reviewed. HEET: Head normocephalic atraumatic, TMs clear bilaterally. Posterior pharynx is clear, moist mucous membranes. Nares clear bilaterally. On external visualization, patient has significant cellulitis to both upper and lower eyel ids, this extended to the upper cheeks. The area is warm to the touch. Patient does have gross drainage coming from both eyes. Bilateral iritis, conjunctiva is erythematous, injected. Patient has significant pain when performing PERRLA, patient also has pain with EOM movement such as right left up and down. She moves her head instead of moving her eyes secondary to the pain. Neck: Supple with no lymphadenopathy or tenderness. No signs of meningismus. Cardiac: Regular rate and rhythm no murmurs gallops or rubs, equal peripheral pulses bilaterally. Respiratory: Lungs clear to auscultation bilaterally. No chest tenderness. Abdomen: Soft, nontender, nondistended. No abdominal bruit or pulsatile masses. No hepatosplenomegaly Extremities: No peripheral edema, no signs of gross trauma or deformity. Active full range of motion of all extremities. Neuro: Cranial nerves II through XII intact, no focal neurological deficits. Skin: Clean dry and intact with no rash, purpura, petechiae, vesicles or pustules. Backs/flank: No CVA tenderness, no midline spinal tenderness, no deformity. Psych: Normal mood and affect. No SI, HI or acute psychosis. Const Vital Signs: 10/12/23 11:02 10/12/23 11:27 Temperature 97 F L 97.9 F Temperature Source Temporal Temporal Pulse Rate 65 65 Respiratory Rate 14 14 Blood Pressure 154/67 H 154/67 H Blood Pressure Mean 96 96 Pulse Ox 97 98 Oxygen Delivery Method Room Air Room Air <Dr. Perez Humphreys DO - Last Filed: 10/12/23 22:53> Physical Exam Narrative Exam Narrative: Vital signs reviewed. HEET: Head normocephalic atraumatic, TMs clear bilaterally. Posterior pharynx is clear, moist mucous membranes. Nares clear bilaterally. On external visualization, patient has significant cellulitis to both upper and lower eyelids, this extended to the upper cheeks. The area is warm to the touch. Patient does have gross Yellowish/green drainage coming from both eyes. Bilateral iritis, conjunctiva is erythematous, injected. Patient has significant pain when performing PERRLA, patient also has Moderate pain with EOM movement such as right left up and down. She moves her head instead of moving her eyes secondary to the pain. Neck: Supple with no lymphadenopathy or tenderness. No signs of meningismus. Cardiac: Regular rate and rhythm no murmurs gallops or rubs, equal peripheral pulses bilaterally. Respiratory: Lungs clear to auscultation bilaterally. No chest tenderness. Abdomen: Soft, nontender, nondistended. No abdominal bruit or pulsatile masses. No hepatosplenomegaly Extremities: No peripheral edema, no signs of gross trauma or deformity. Active full range of motion of all extremities. Neuro: Cranial nerves II through XII intact, no focal neurological deficits. Skin: Clean dry and intact with no rash, purpura, petechiae, vesicles or pustules. Backs/flank: No CVA tenderness, no midline spinal tenderness, no deformity. Psych: Normal mood and affect. No SI, HI or acute psychosis. [facility] <GREG Cohen - Last Filed: 10/12/23 14:31> [facility] Treatment and Re-Evaluation Narrative: Differential diagnosis includes however is not limited to: Orbital cellulitis, periseptal cellulitis, failed outpatient treatment of conjunctivitis, foreign body, trauma Patient on my initial evaluation is concerning, I am concerned for orbital cellulitis. Patient has had left eye pain for the last 3 or 4 days, this is now bilateral eyes. Patient does have cellulitis, iritis, injection. Patient will receive a septic workup including 2 sets of blood cultures, lactic. Patient be given IV fluids, Zofran, morphine, patient will also be receiving IV Unasyn. I did reach out to ophthalmology, Dr. Dunn, I discussed the patient's symptoms, the patient will be evaluated by ophthalmology. Patient received a CT scan of the orbits. All radiologic examinations were read, reviewed by the emergency department attending. From these reads, a plan of care will be put in place. Patient's CBC was unremarkable, lactic acid was negative. Chemistries show glu cose 114, anion gap was negative. IV antibiotics infusing, patient did have relief with IV morphine and Zofran. Patient CT showed intact orbits, pansinusitis. Both globes are unremarkable, extraocular muscles are normal. Retrobulbar fat appears unremarkable. No evidence of abscess. I spoke with Dr. Dunn regarding DC versus admission, however I do feel comfortable patient being admission. Patient will need IV antibiotics, she still having photophobia as well as pain with movement. Patient will be admitted to hospitalist service. I spoke with patient she is on board. <Dr. Perez Humphreys, DO - Last Filed: 10/12/23 22:53> [facility] Treatment and Re-Evaluation Narrative: Differential diagnosis includes however is not limited to: Orbital cellulitis, periseptal cellulitis, failed outpatient treatment of conjunctivitis, foreign body, trauma Patient on my initial evaluation is concerning, I am concerned for orbital cellulitis. Patient has had left eye pain for the last 3 or 4 days, this is now bilateral eyes. Patient does have cellulitis, iritis, injection. Patient will receive a septic workup including 2 sets of blood cultures, lactic. Patient be given IV fluids, Zofran, morphine, patient will also be receiving IV Unasyn. I did reach out to ophthalmology, Dr. Dunn, I discussed the patient's symptoms, the patient will be evaluated by ophthalmology. Patient received a CT scan of the orbits. All radiologic examinations were read, reviewed by the emergency department attending. From these reads, a plan of care will be put in place. Patient's CBC was unremarkable, lactic acid was negative. Chemistries show glucose 114, anion gap was negative. IV antibiotics infusing, patient did have relief with IV morphine and Zofran. Patient CT showed intact orbits, pansinusitis. Both globes are unremarkable, extraocular muscles are normal. Retrobulbar fat appears unremarkable. No evidence of abscess. I spoke with Dr. Dunn regarding DC versus admission, however I do feel comfortable patient being admission. Patient will need IV antibiotics, she still having photophobia as well as pain with movement. Patient will be admitted to hospitalist service. I spoke with patient she is on Agreeable to the plan. I, Dr Humphreys, have reviewed the above progress note and course of action in the ER; and I agree with the above. I have personally seen and evaluated this patient. I have gone over history and physical, and also discussed disposition and tr eatment plan with the patient. Discharge Plan Dx/Rx/DC Orders Clinical Impression: Cellulitis of bilateral orbits Disposition Disposition: Acute Care Hospital [facility] Discharge Date/Time: 10/12/23 15:20
[2023-10-12] MEDS: Ondansetron 4 MG/2 ML Vial IV ×2 (11:55→21:32)
[2023-10-12] MEDS: 0.9% Normal Saline (1000mL) 1,000 ML 1000 ML IV (11:55)
[2023-10-12] MEDS: Morphine 4 MG/ML Syringe IV (11:57)
[2023-10-12] MEDS: Ampicillin/Sulbactam 3 GM in 0.9% Normal Saline (100mL MB+) 100 ML IV ×3 (11:58→23:12)
[2023-10-12 12:00] LABS: Absolute Lymphocyte Count 2.07 X10^3/uL (0.83-4.51); Absolute Neutrophil Count 4.9 X10^3/uL (2.0-7.7); Basophil# 0.02 X10^3/uL; Basophil% 0.3 % (0-1); Eosinophil# 0.17 X10^3/uL; Eosinophils% 2.2 % (0-5); Hematocrit 39.8 % (37-47); Hemoglobin 12.8 g/dL (12.0-15.0); Lymphocyte # 2.07 X10^3/ul (0.83-4.51); Lymphocyte % 26.7 % (19-41); Mean Corp Hgb Conc 32.2 g/dL (32-36); Mean Corpuscular Hgb 27.4 pg (27.0-32.0); Mean Corpuscular Volume 85.2 fL (81-99); Mean Platelet Vol. 10.6 fl (6.2-12.0); Monocyte# 0.55 X10^3/uL; Monocyte% 7.1 % (0-10); NRBC Flagged by Analyzer 0 % (0-5); Neutrophil # 4.91 X10^3/uL (2.7-7.7); Neutrophil % 63.2 % (47-70); Platelet Count 151 K/mm3 (150-450); RBC Distribution Width CV 14.3 % (11.6-14.6); RBC Distribution Width SD 44.4 fl (35.1-43.9); Red Blood Count 4.67 M/mm3 (4.2-5.4); White Blood Count 7.8 K/mm3 (4.4-11.0)
[2023-10-12 12:33] LABS: Lactic Acid 1.2 mmol/L (0.4-1.9)
[2023-10-12 12:34] LABS: AST(SGOT) 22 U/L (15-37); Alanine Aminotransfer ALT/SGPT 22 U/L (13-56); Albumin, Serum 3.5 g/dL (3.2-5.0); Alkaline Phosphatase 79 U/L (45-117); Anion Gap 3 (5-15); BUN 13 mg/dL (7-18); BUN/Creat Ratio 18.7 RATIO (10-20); Calcium,Total 9.2 mg/dL (8.5-10.1); Chloride 111 mmol/L (98-107); EST Glomerular Filtration Rate 90 mL/min (>60); Est Glom Filt Rate - Afr Amer 109 mL/min (>60); Estimated Creatinine Clearance 83.63 ml/min; Globulin 3.5 g/dL (2.2-4.2); Glucose 114 mg/dL (74-106); Potassium 3.8 mmol/L (3.5-5.1); Sodium Level 140 mmol/L (136-145)
[2023-10-12] MEDS: Ketorolac 15 MG/ML Vial IV ×2 (12:44→16:27)
--- NOTE | 2023-10-12 14:21 | HP.PCM.HOS_ITS ---
HPI - General General Date of Admission: 10/12/23 Date of Service: 10/12/23 Chief Complaint: Bilateral eye pain HPI Narrative ELFEGO GAINES, is a 63 F with past medical history of psoriasis, diverticulosis, essential hypertension who presents to the ED with concerns regarding bilateral eye pain since the last 2 days. morning she noticed redness and increased discharge from her left eye which quickly progressed to involve both eyes over the next 2 days. Initially she was started on polymyxin eyedrops but there was no improvement. Her granddaughter had pinkeye during the same time but it responded well to her eyedrops. Since the last 2 days she is having progressive redness of her eyes, with difficulty and pain with eye movements and mild photophobia. She presents to the ED for the same. [facility] Medical History Anemia Anxiety Arthritis Broken tooth-uncomplic Former smoker High cholesterol History of diverticulitis History of stress test Wears glasses Home Medications atorvastatin 20 mg tablet 20 mg PO QHS 05/31/16 [History Last Taken 10/11/23] estradiol 1 mg tablet 1 mg PO DAILY 09/25/20 [History Last Taken 10/12/23] medroxyprogesterone 2.5 mg tablet 2.5 mg PO DAILY 09/25/20 [History Last Taken 10/12/23] sertraline 100 mg tablet 150 mg PO QHS 09/25/20 [History Last Taken 10/11/23] vitamin B complex 1 tablet PO DAILY 09/25/20 [History Last Taken 10/12/23] cholecalciferol (vitamin D3) 50 mcg (2,000 unit) capsule 50 mcg PO DAILY 11/05/22 [History Last Taken 10/12/23] buspirone 10 mg tablet 10 mg PO TID 12/07/22 [History Last Taken 10/12/23] meloxicam 15 mg tablet 15 mg PO DAILY PRN pain 12/07/22 [History Last Taken Unknown] omeprazole 20 mg capsule,delayed release 20 mg PO DAILY 12/07/22 [History Last Taken 10/12/23] losartan 100 mg tablet 100 mg PO DAILY 10/12/23 [History Last Taken 10/12/23] metoprolol succinate 25 mg tablet,extended release 24 hr 25 mg PO BID high blood pressure 10/12/23 [History Last Taken 10/12/23] polymyxin B sulfate 10,000 unit-trimethoprim 1 mg/mL eye drops 1 drp ophthalmic (eye) DAILY 10/12/23 [History Last Taken 10/12/23] Allergy/AdvReac Type Severity Reaction Status Date / Time acetaminophen AdvReac Vomiting Verified 10/12/23 11:03 [From Darvocet-N] codeine AdvReac Nausea Verified 10/12/23 11:03 lisinopril AdvReac Other Verified 10/12/23 11:03 nabumetone [From Relafen] AdvReac Upset Verified 10/12/23 11:03 Stomach propoxyphene napsylate AdvReac Vomiting Verified 10/12/23 11:03 [From Darvocet-N] Family History Aunt Breast cancer Grandmother Diabetes Mother Hypertension Father Hypertension Surgical History S/P appendectomy S/P colectomy S/P laparoscopic cholecystectomy Status post hip surgery Social History (Updated 10/12/23 @ 11:12 by Haleigh Velasco) adopted: No current occupational status: employed Smoking Status: Former smoker alcohol intake: never substance use type: does not use ROS Review of Systems ROS Unobtainable: Denies due to encephalopathy, due to endotracheal tube, due to mental condition, due to mental status or other Constitutional Constitutional: Denies anorexia, change in weight, chills, fatigue, fever(s), malaise, night sweats, weakness or other Eyes Eyes: Reports discharge from eye(s), double vision, erythema and eye pain; Denies blurry vision, change in eye color, change in vision, loss of vision or other ENT HEENT: Denies abnormal hearing, dysphagia, ear pain, epistaxis, headache(s), hearing loss, nasal congestion, nasal discharge, post nasal drip, sinus pressure, sore throat or other Cardiovascular Cardiovascular: Denies chest pain, claudication, dyspnea on exertion, edema, lightheadedness, orthopnea, palpitations, paroxysmal nocturnal dyspnea, rapid heart rate, syncope or other Respiratory/Chest Respiratory/Chest: Denies cough, dyspnea, excessive phlegm production, hemoptys is, productive cough, shortness of breath at rest, shortness of breath with exertion, wheezing or other Gastrointestinal Gastrointestinal: Denies abdominal pain, coffee ground emesis, constipation, diarrhea, dyspepsia, hematemesis, hematochezia, loose stools, melena, nausea, vomiting or other Genitourinary Genitourinary: Denies burning urination, difficulty urinating, dysuria, hematuria, nocturia, urinary frequency, urinary hesitancy, urinary incontinence, urinary urgency or other Musculoskeletal Musculoskeletal: Denies arthralgias, back pain, joint pain, joint stiffness, joint swelling, myalgias, neck pain or other Psychiatric Psychiatric: Denies anxiety, depression, homicidal ideation, suicidal ideation or other Endocrine Endocrinology: Denies change in body appearance, cold intolerance, excessive sweating, heat intolerance, polydipsia, polyuria or other Hematologic/Lymphatic Hematologic/Lymphatic: Denies anemia, easy bleeding, easy bruising, lymphadenopathy or other Allergic/Immunologic Allergic/Immunologic: Denies rhinitis, hives, eczemia, asthma or other Vital Signs Vital Signs Vital Signs: 10/12/23 11:02 10/12/23 11:27 10/12/23 12:27 Temperature 97 F L 97.9 F 97 F L Temperature Source Temporal Temporal Temporal Pulse Rate 65 65 63 Respiratory Rate 14 14 14 Blood Pressure 154/67 H 154/67 H 149/70 H Blood Pressure Mean 96 96 96 Pulse Ox 97 98 96 Oxygen Delivery Method Room Air Room Air Room Air 10/12/23 13:00 10/12/23 14:00 Temperature 97.9 F 97 F L Temperature Source Temporal Temporal Pulse Rate 60 55 L Respiratory Rate 16 14 Blood Pressure 158/69 H 161/82 H Blood Pressure Mean 98 108 Pulse Ox 97 95 Oxygen Delivery Method Room Air Room Air Weight Weight: 196 lb 13.965 oz Body Mass Index (BMI) 37.2 Physical Exam Const alert and oriented x3 General Appearance: cooperative HEENT hearing grossly normal bilaterally Eyes Eyes Narrative: Bilateral redness in both eyes involving the conjunctiva, periorbital edema and erythema, photophobia, pain with eye movements, no proptosis. Neck no lymphadenopathy Resp normal respiratory effort Cardio regular rate and regular rhythm GI normal to inspection, nondistended, normoactive bowel sounds Neuro oriented x3 Results Medical Records Data Attestation: I reviewed the patient's medical records Lab / Micro Data Attestation: I reviewed the patient's lab results. 10/12/23 11:45 10/12/23 11:45 Labs: Laboratory Results - last 24 hr 10/12/23 11:45: WBC 7.8, RBC 4.67, Hgb 12.8, Hct 39.8, MCV 85.2, MCH 27.4, MCHC 32.2, RDW Std Deviation 44.4 H, RDW Coeff of Kourtney 14.3, Plt Count 151, MPV 10.6, Immature Gran % (Auto) 0.500, Neut % (Auto) 63.2, Lymph % (Auto) 26.7, [place] % (Auto) 7.1, Eos % (Auto) 2.2, Baso % (Auto) 0.3, Absolute Neuts (auto) 4.9, Absolute Lymphs (auto) 2.07, Nucleated RBC % 0, Sodium 140, Potassium 3.8, Chloride 111 H, Carbon Dioxide 26.0, Anion Gap 3 L, BUN 13, Creatinine 0.70, Estim Creat Clear Calc 83.63, Est GFR (MDRD) Af Amer 109, Est GFR (MDRD) Non-Af 90, BUN/Creatinine Ratio 18.7, Glucose 114 H, Lactic Acid 1.2, Calcium 9.2, Total Bilirubin 0.90, AST 22, ALT 22, Alkaline Phosphatase 79, Total Protein 7.0, Albumin 3.5, Globulin 3.5, Albumin/Globulin Ratio 1.0 ABG Data Attestation: I personally reviewed and interpreted this ABG as follows: Imaging Radiology Impression CT Orbit Sella Inner 10/12/23 11:27 IMPRESSION: 1. Intact orbits. 2. Pansinusitis. Electronically Signed: Reno Pa MD at 12:50 EDT , Assessment & Plan Assessment/Plan (1) Cellulitis of bilateral orbits: PLAN: Plan 63-year-old female with history of hypertension, diverticulosis, GERD is being admitted for the management of bilateral conjunctivitis with associated suspected cellulitis. Her imaging studies are negative for any orbital inflammation but given her nonresponse to eyedrops she is being admitted for IV antibiotic therapy 1. Bilateral red eye: Her presentation with similar symptoms and her granddaughter are concerning for viral conjunctivitis as a started with 1 eye with associated lid swelling and discharge and progressed to the other eye. Given the periorbital erythema there are concerns regarding some cellulitis, case has been discussed with ophthalmology and they will evaluate the patient on Saturday -Start IV Unasyn for the suspected cellulitis -Blood cultures -There is no fever or proptosis at this time concerns regarding orbital cellulitis is low. -No vision loss -Pain control with ketorolac, morphine 2. Hypertension: Blood pressure was 137/75 at the time of presentation -Continue losartan 25 twice daily and metoprolol 25 mg twice daily 3. Dyslipidemia: Continue atorvastatin 20 4. GERD: Continue PPI 20 mg.
[2023-10-12] MEDS: Tetracaine 0.5% Ophthalmic Bottle 4 DRP EACH EYE (14:24)
[2023-10-12] MEDS: Tobram/Dexam 2.5ML OPTH.BTL 2 DRP EACH EYE (14:25)
[2023-10-12] MEDS: 0.9% Saline Lock 10 ML Syringe IV ×2 (16:33→18:25)
[2023-10-12] MEDS: Ciprofloxacin 0.3% 2.5ml Bottle 2 DRP OPHTHALMIC ×2 (18:19→21:33)
[2023-10-12] MEDS: 0.9% Normal Saline (250mL Bag) 250 ML 15 ML IV (18:20)
[2023-10-12] MEDS: oxyCODONE 5 MG Tablet PO (21:32)
[2023-10-12] MEDS: Atorvastatin Calcium 20 MG Tablet PO (21:35)
[2023-10-12] MEDS: Losartan Potassium 25 MG Tablet PO (21:35)
[2023-10-12] MEDS: Sertraline 100 MG Tablet 150 MG PO (21:36)
[2023-10-12] MEDS: busPIRone 5 MG Tablet 10 MG PO (21:36)
[2023-10-13] MEDS: Ciprofloxacin 0.3% 2.5ml Bottle 2 DRP OPHTHALMIC ×6 (01:16→22:00)
[2023-10-13 04:00] VITALS: BP 138/60; PULSE 61; RESP 18; TEMP 36.9; O2SAT 97
[2023-10-13] MEDS: Ketorolac 15 MG/ML Vial IV ×2 (04:15→10:13)
[2023-10-13] MEDS: busPIRone 5 MG Tablet 10 MG PO ×3 (04:19→22:00)
[2023-10-13] MEDS: Ampicillin/Sulbactam 3 GM in 0.9% Normal Saline (100mL MB+) 100 ML IV ×3 (04:21→17:50)
[2023-10-13 06:43] LABS: AST(SGOT) 18 U/L (15-37); Alanine Aminotransfer ALT/SGPT 19 U/L (13-56); Albumin, Serum 3.1 g/dL (3.2-5.0); Alkaline Phosphatase 72 U/L (45-117); Anion Gap 5 (5-15); BUN 13 mg/dL (7-18); Calcium,Total 8.1 mg/dL (8.5-10.1); Chloride 112 mmol/L (98-107); Creatinine, Serum 0.65 mg/dL (0.55-1.02); EST Glomerular Filtration Rate 98 mL/min (>60); Est Glom Filt Rate - Afr Amer 118 mL/min (>60); Estimated Creatinine Clearance 89.99 ml/min; Globulin 3.2 g/dL (2.2-4.2); Glucose 104 mg/dL (74-106); Phosphorus 3.1 mg/dL (2.5-4.9); Potassium 3.5 mmol/L (3.5-5.1); Protein, Total 6.3 g/dL (6.4-8.2); Sodium Level 139 mmol/L (136-145)
[2023-10-13 06:48] LABS: Prothrombin Time (Protime)PT. 13.3 SECONDS (11.7-14.9)
[2023-10-13 07:55] LABS: Absolute Lymphocyte Count 2.13 X10^3/uL (0.83-4.51); Absolute Neutrophil Count 4.1 X10^3/uL (2.0-7.7); Basophil# 0.02 X10^3/uL; Basophil% 0.3 % (0-1); Eosinophil# 0.24 X10^3/uL; Eosinophils% 3.4 % (0-5); Hematocrit 37.4 % (37-47); Hemoglobin 11.7 g/dL (12.0-15.0); Lymphocyte # 2.13 X10^3/ul (0.83-4.51); Lymphocyte % 30.1 % (19-41); Mean Corp Hgb Conc 31.3 g/dL (32-36); Mean Corpuscular Hgb 26.9 pg (27.0-32.0); Mean Platelet Vol. 10.8 fl (6.2-12.0); Monocyte# 0.52 X10^3/uL; Monocyte% 7.4 % (0-10); NRBC Flagged by Analyzer 0 % (0-5); Neutrophil # 4.13 X10^3/uL (2.7-7.7); Neutrophil % 58.4 % (47-70); Platelet Count 146 K/mm3 (150-450); RBC Distribution Width CV 14.3 % (11.6-14.6); RBC Distribution Width SD 45.1 fl (35.1-43.9); Red Blood Count 4.35 M/mm3 (4.2-5.4); White Blood Count 7.1 K/mm3 (4.4-11.0)
[2023-10-13] MEDS: Pantoprazole Sodium 20 MG Tablet PO (09:52)
[2023-10-13] MEDS: Losartan Potassium 25 MG Tablet PO ×2 (09:56→22:00)
[2023-10-13] MEDS: Estradiol 1 MG Tablet PO (09:57)
[2023-10-13] MEDS: Cholecalciferol (VIT D3) 25 MCG TABLET (1,000 UNITS) 50 MCG PO (09:57)
[2023-10-13 10:00] VITALS: BP 134/66; PULSE 64; RESP 18; TEMP 36.8; O2SAT 98
[2023-10-13] MEDS: oxyCODONE 5 MG Tablet PO ×2 (10:12→22:04)
[2023-10-13] MEDS: 0.9% Saline Lock 10 ML Syringe IV (10:13)
[2023-10-13] MEDS: Fluticasone 0.05% 1 SPRAY NASAL.SRY NASAL ×2 (12:19→22:00)
--- NOTE | 2023-10-13 13:53 | PCM.PN.HOSP ---
Reason for Visit Reason for Visit: Diagnoses Cellulitis of bilateral orbits (10/12/23) Objective Data Objective Data Vital Signs: Vital Signs Temp Pulse Resp BP Pulse Ox O2 Del Method 98.2 F 64 18 134/66 H 98 Room Air 10/13/23 10:00 10/13/23 10:00 10/13/23 10:00 10/13/23 10:00 10/13/23 10:00 10/13/23 10:00 Oxygen Delivery Method Room Air Weight: 196 lb 9.6 oz Body Mass Index (BMI) 37.1 Intake & Output: Intake and Output for Last 24 Hours 10/11/23 10/12/23 10/13/23 23:59 23:59 23:59 Intake Total 1537.75 / 1649.75 1201.5 / 1201.5 Balance 1537.75 / 1649.75 1201.5 / 1201.5 Lab / Micro Data 10/13/23 07:25 10/13/23 05:57 Labs: Laboratory Results - last 24 hr PT 13.3, INR 1.0, Sodium 139, Potassium 3.5, Chloride 112 H, Carbon Dioxide 22.0, Anion Gap 5, BUN 13, Creatinine 0.65, Estim Creat Clear Calc 89.99, Est GFR (MDRD) Af Amer 118, Est GFR (MDRD) Non-Af 98, BUN/Creatinine Ratio 20.0, Glucose 104, Calcium 8.1 L, Phosphorus 3.1, Total Bilirubin 0.70, AST 18, ALT 19, Alkaline Phosphatase 72, Total Protein 6.3 L, Albumin 3.1 L, Globulin 3.2, Albumin/Globulin Ratio 1.0 10/13/23 07:25: WBC 7.1, RBC 4.35, Hgb 11.7 L, Hct 37.4, MCV 86.0, MCH 26.9 L, MCHC 31.3 L, RDW Std Deviation 45.1 H, RDW Coeff of Kourtney 14.3, Plt Count 146 L, MPV 10.8, Immature Gran % (Auto) 0.400, Neut % (Auto) 58.4, Lymph % (Auto) 30.1, [place] % (Auto) 7.4, Eos % (Auto) 3.4, Baso % (Auto) 0.3, Absolute Neuts (auto) 4.1, Absolute Lymphs (auto) 2.13, Nucleated RBC % 0 Physical Exam Narrative Seen and examined. Patient admitted with bilateral conjunctivitisFor last 3 days started with the left eye. She had mild blurry vision but has improved. Physical exam General: Alert, Oriented x3, Cooperative HEENT: Bulbar and palpebral conjunctival edema and redness consistent with bacterial conjunctivitis. Cornea not involved. On direct one-to-one vision test, within normal parameters. Atraumatic, PERRLA, EOMI, Normocephalic Oral: No Gingival or Mucosal Lesions/ Ulcerations Neck: Supple, No JVD, Negative Carotid Bruits Chest wall/Lungs: Air entry diminished in bilateral lung bases. No crepitation/rhonchi Cardiovascular: Regular rate, Regular Rhythm, Normal S1, Normal S2, No M/G/R Abdomen: Bowel Sounds Present, Soft, Non Tender, Non-Distended : No dysuria. No renal angle tenderness. No suprapubic tenderness. Extremities: No edema, Capillary Refill Less than 3 Seconds Skin: No rashes, No breakdown Musculoskeletal: No Tenderness to Palpation of Joints or Extremities Neurological: Cranial nerves II-XII grossly intact, DTR 2+/4. No acute focal neurological deficit. Psych/Mental Status: Normal Affect, Appropriate. Assessment & Plan Assessment/Plan (1) Cellulitis of bilateral orbits: PLAN: Plan 63-year-old female with history of hypertension, diverticulosis, GERD is being admitted for the management of bilateral conjunctivitis . Her imaging studies are negative for any orbital inflammation but given her nonresponse to eyedrops she is being admitted for IV antibiotic therapy 1. Bilateral red eye most likely infectious from her granddaughter's periorbital erythema: On clinical exam it seems bacterial conjunctivitis with redness and conjunctival edema. CT orbit shows intact orbit, unremarkable, extraocular muscles normal, retrobulbar fat unremarkable with no evidence of abscess. Shows extensive opacification of paranasal sinuses therefore pansinusitis. Erythema around the orbits and eyelids have improved. Admitting hospitalist has discussed with ophthalmology and they will evaluate the patient on Saturday -Start IV Unasyn for the suspected cellulitis -Blood cultures are pending. No fever or proptosis. No vision loss on direct confrontational one-to-one exam. -There is no fever or proptosis at this time concerns regarding orbital cellulitis is low. 2. Hypertension: Blood pressure was 137/75 at the time of presentation Blood pressure is controlled. -Continue losartan 25 twice daily and metoprolol 25 mg twice daily 3. Dyslipidemia: Continue atorvastatin 20 4. GERD: Continue PPI 20 mg. DVT prophylaxis: Lovenox 40 mill subcu daily. Discontinue if platelet count drops less than 50,000 or hemoglobin less than 8 g% Anticipate discharge tomorrow a.m. Clinical Impression(s) from Imaging Studies CT Orbit Sella Inner 10/12/23 11:27 IMPRESSION: 1. Intact orbits. 2. Pansinusitis. Laboratory Results PT 13.3, INR 1.0, Sodium 139, Potassium 3.5, Chloride 112 H, Carbon Dioxide 22.0, Anion Gap 5, BUN 13, Creatinine 0.65, Estim Creat Clear Calc 89.99, Est GFR (MDRD) Af Amer 118, Est GFR (MDRD) Non-Af 98, BUN/Creatinine Ratio 20.0, Glucose 104, Calcium 8.1 L, Phosphorus 3.1, Total Bilirubin 0.70, AST 18, ALT 19, Alkaline Phosphatase 72, Total Protein 6.3 L, Albumin 3.1 L, Globulin 3.2, Albumin/Globulin Ratio 1.0 10/13/23 07:25: WBC 7.1, RBC 4.35, Hgb 11.7 L, Hct 37.4, MCV 86.0, MCH 26.9 L, MCHC 31.3 L, RDW Std Deviation 45.1 H, RDW Coeff of Kourtney 14.3, Plt Count 146 L, MPV 10.8, Immature Gran % (Auto) 0.400, Neut % (Auto) 58.4, Lymph % (Auto) 30.1, [place] % (Auto) 7.4, Eos % (Auto) 3.4, Baso % (Auto) 0.3, Absolute Neuts (auto) 4.1, Absolute Lymphs (auto) 2.13, Nucleated RBC % 0 Charges/Coding Visit Charges Inpatient E&M: 00620 Subs Hosp L2
[2023-10-13] MEDS: Enoxaparin 40 MG/0.4 ML Syringe SC (14:15)
[2023-10-13 16:00] VITALS: BP 148/78; PULSE 59; RESP 18; TEMP 36.7; O2SAT 98
[2023-10-13 21:07] VITALS: BP 151/81; PULSE 64; RESP 18; TEMP 36.6; O2SAT 99
[2023-10-13] MEDS: Atorvastatin Calcium 20 MG Tablet PO (22:00)
[2023-10-13] MEDS: Sertraline 100 MG Tablet 150 MG PO (22:05)
[2023-10-14] MEDS: Ampicillin/Sulbactam 3 GM in 0.9% Normal Saline (100mL MB+) 100 ML IV ×2 (00:12→06:14)
[2023-10-14] MEDS: Ciprofloxacin 0.3% 2.5ml Bottle 2 DRP OPHTHALMIC ×4 (02:23→14:30)
[2023-10-14 02:29] VITALS: BP 129/61; PULSE 60; RESP 18; TEMP 36.7; O2SAT 98
[2023-10-14] MEDS: busPIRone 5 MG Tablet 10 MG PO ×2 (06:14→14:30)
[2023-10-14 08:30] VITALS: BP 146/74; PULSE 60; RESP 18; TEMP 36.9; O2SAT 98
[2023-10-14] MEDS: Enoxaparin 40 MG/0.4 ML Syringe SC (10:00)
[2023-10-14] MEDS: Vitamin B Comp W-C Capsule 1 CAP PO (10:01)
[2023-10-14] MEDS: Cholecalciferol (VIT D3) 25 MCG TABLET (1,000 UNITS) 50 MCG PO (10:01)
[2023-10-14] MEDS: Losartan Potassium 25 MG Tablet PO (10:02)
[2023-10-14] MEDS: Estradiol 1 MG Tablet PO (10:02)
[2023-10-14] MEDS: Fluticasone 0.05% 1 SPRAY NASAL.SRY NASAL (10:06)
[2023-10-14] MEDS: Pantoprazole Sodium 20 MG Tablet PO (10:08)
--- NOTE | 2023-10-14 11:26 | PCM.DC.SUM ---
Providers Date of Admission: 10/12/23 Date of Discharge: 10/14/23 Primary Care Physician: Dr. Harish Osborne MD Consultations 10/12/23 16:32 Consult: Ophthamology Routine Consulting Provider: Darcie Dunn Reason for Consult: Cellulitis EMERGENT Consult: No MD Notified: Yes Date Notified: 10/12/23 Time Notified: 16:32 Method of Notification: ED Physician Initiated Reason For Visit: EYE PAIN Diagnosis Discharge Diagnosis (1) Cellulitis of bilateral orbits: Status: Acute Code(s): H05.013 - Cellulitis of bilateral orbits Medications at Discharge Home Medications atorvastatin 20 mg tablet 20 mg PO QHS 05/31/16 estradiol 1 mg tablet 1 mg PO DAILY 09/25/20 medroxyprogesterone 2.5 mg tablet 2.5 mg PO DAILY 09/25/20 sertraline 100 mg tablet 150 mg PO QHS 09/25/20 vitamin B complex 1 tablet PO DAILY 09/25/20 cholecalciferol (vitamin D3) 50 mcg (2,000 unit) capsule 50 mcg PO DAILY 11/05/22 buspirone 10 mg tablet 10 mg PO TID 12/07/22 meloxicam 15 mg tablet 15 mg PO DAILY PRN pain 12/07/22 omeprazole 20 mg capsule,delayed release 20 mg PO DAILY 12/07/22 losartan 100 mg tablet 100 mg PO DAILY 10/12/23 metoprolol succinate 25 mg tablet,extended release 24 hr 25 mg PO BID high blood pressure 10/12/23 amoxicillin 875 mg-potassium clavulanate 125 mg tablet 1 tab PO BID 5 days #10 tabs 10/14/23 artificial tears(cjasfwz-iphbqhvy-orxnbwo) 0.1 %-0.3 %-0.2 % eye drops 1 drp EACH EYE BID PRN dry eyes #15 mL 10/14/23 fluticasone propionate 50 mcg/actuation nasal spray,suspension (Flonase Allergy Relief) 1 spray intranasal BID 30 days #16 grams 10/14/23 Hospital Course Operations None Procedures - (CT orbits) Summary of Care Provided Minutes Spent on Discharge: 35 Hospital Course: Patient is a 63 year old female who presented to [facility] on 10/12/2023 with worsening bilateral eye pain and periorbital swelling. 1. Cellulitis of bilateral orbits, pansinusitis - Presented w/ significant b/l periorbital edema, eye pain, conjunctivitis and slight blurry vision. CT orbits showed pansinusitis, intact orbits, no other abnormalities. No systemic infectious signs or symptoms. Blood cultures negative. Treated with IV Unasyn while inpatient with very good improvement. Discharged on Augmentin BID to complete 7 day course of antibiotics total. Flonase BID scheduled and artificial tears as needed also prescribed on discharge. Case was discussed with Ophthalmology; no need for them to see the patient in hospital, and only need to see patient in office as needed. Chronic medical conditions: - Obesity: BMI 37 on admit. Complicated hospital course, care and prognosis. Encouraged lifestyle modifications. - GERD: Continue home PPI. - Anxiety/depression: Stable. Continue home buspirone and sertraline. - HTN: Stable. Continue home Toprol and losartan. - HLD: Continue home statin. - Menopausal symptoms: Continue home estradiol and medroxyprogesterone. Total clinical time spent by myself addressing the patient's medical issues, reviewing all the data, and collaborating with patient's care team: 35 minutes. Physical Exam Narrative Physical exam General: Alert, Oriented x3, Cooperative HEENT: Bulbar and palpebral conjunctival edema and redness consistent with bacterial conjunctivitis, much improved from admission. Cornea not involved. On direct one-to-one vision test, within normal parameters. Atraumatic, PERRLA, EOMI, Normocephalic Oral: No Gingival or Mucosal Lesions/ Ulcerations Neck: Supple, No JVD, Negative Carotid Bruits Chest wall/Lungs: Air entry diminished in bilateral lung bases. No crepitation/rhonchi Cardiovascular: Regular rate, Regular Rhythm, Normal S1, Normal S2, No M/G/R Abdomen: Bowel Sounds Present, Soft, Non Tender, Non-Distended : No dysuria. No renal angle tenderness. No suprapubic tenderness. Extremities: No edema, Capillary Refill Less than 3 Seconds Skin: No rashes, No breakdown Musculoskeletal: No Tenderness to Palpation of Joints or Extremities Neurological: Cranial nerves II-XII grossly intact, DTR 2+/4. No acute focal neurological deficit. Psych/Mental Status: Normal Affect, Appropriate. Weight / BMI Weight Weight: 89.176 kg Body Mass Index (BMI) 37.1 ABG / Lab / Microbiology Data 10/13/23 07:25 10/13/23 05:57 Meaningful Use Info Meaningful Use Diagnoses (Choose all that apply): None applicable Discharge Plan Admission Admit Date/Time: 10/12/23 14:32 Primary Reason for Your Visit: Eye pain and swelling around the eyes Attending Provider: Josiah Alvarez Primary Care Provider: Harish Osborne Consulting Providers: Darcie Dunn; Andie Unger; Collin Kwong Instructions Additional Instructions / Restrictions: Please take Augmentin for 5 days as noted below to complete a 7-day course of antibiotics total. Please use the Flonase 1 spray twice daily for sinusitis. Please use the artificial tears as needed for dry eyes. Discharge Orders/Prescriptions Prescriptions: New amoxicillin-pot clavulanate 875-125 mg tablet 1 tab PO BID 5 Days Qty: 10 0RF artificial tear(msmwc-iyg-qow) 0.1-0.3-0.2 % drops 1 drp EACH EYE BID PRN (Reason: dry eyes) Qty: 15 0RF fluticasone propionate [Flonase Allergy Relief] 50 mcg/actuation spray,suspension 1 spray intranasal BID 30 Days Qty: 16 2RF Rx Instructions: administer into each nostril Continued cholecalciferol (vitamin D3) 50 mcg (2,000 unit) capsule 50 mcg PO DAILY atorvastatin 20 MG tablet 20 mg PO QHS medroxyprogesterone 2.5 MG tablet 2.5 mg PO DAILY sertraline 100 MG tablet 150 mg PO QHS estradiol 1 MG tablet 1 mg PO DAILY vitamin B complex 1 EACH capsule 1 tablet PO DAILY meloxicam 15 mg tablet 15 mg PO DAILY PRN (Reason: pain) buspirone 10 mg tablet 10 mg PO TID omeprazole 20 mg capsule,delayed release(DR/EC) 20 mg PO DAILY Patient Comments: TAKE 1 CAPSULE BY MOUTH EVERY DAY BEFORE BREAKFAST 1/2 HOUR BEFORE MEAL losartan 100 mg tablet 100 mg PO DAILY metoprolol succinate 25 mg tablet extended release 24 hr 25 mg PO BID Discontinued polymyxin B sulf-trimethoprim 10,000 unit- 1 mg/mL drops 1 drp ophthalmic (eye) DAILY Referrals / Follow Up: Harish Osborne MD [Primary Care Provider] - Disposition Disposition (needs filled in before D/C Order can be placed): Home, Self Care Charges/Coding Visit Charges Inpatient E&M: 32653 Disch Hosp >30min
--- NOTE | 2023-10-14 12:45 | CASEMGMT ---
RN?CM?PACKING LINE OPERATOR?CM?to room to meet with patient for initial transition planning/care coordination?assessment.?RN?CM?introduced self and role at [facility].? Pt voices understanding and consents to?assessment?at this time.? Pt sitting on edge of bed in no distress at this time.? Pt is A/O at this time and answers all questions appropriately.?? Care providers, pharmacy, and demographics verified/updated at this time. PCP: Dr Osborne Specialists: Dr Duval-surgeon/GI [facility] Insurance: Vdolg Prescription Benefit:?Yes LNOK: Living Arrangements: Lives w/her . Independent. Works 4 days/week. Transportation:?Pt states drives self and states no transportation concerns at this time. also works. ? DME: ? Denies using any DME and denies needs.? HHC/SNF: No history. No needs identified. Pt wishes to return home and states has no concerns with going home at time of discharge.? PLAN:??Home Latrice ALEGRIAN?RN?CM
--- NOTE | 2023-10-14 13:41 | PHA.DC_ITS ---
Pharmacy [facility] has performed discharge medication reconciliation and counseling for this patient. 1. AMOXICILLIN/CLAVULANATE 875/125MG PO BID X 5 DAYS 2. ARTIFICIAL TEARS 1GTT OU BID PRN DRY EYES 3. FLUTICASONE NASAL SPRAY 1 SPRAY EACH NOSTRIL BID The patient's discharge medication list was reviewed for discrepancies and discr epancies were resolved. The patient was counseled on the following discharge medications and changes in medications for homegoing were reviewed. The Reason for Use, instructions for use, and potential side effects were reviewed for all new medications. The patient's questions regarding all of their medications were answered. The patient was able to verbally demonstrate an understanding of their discharge medications. Medications at Discharge Home Medications atorvastatin 20 mg tablet 20 mg PO QHS 05/31/16 estradiol 1 mg tablet 1 mg PO DAILY 09/25/20 medroxyprogesterone 2.5 mg tablet 2.5 mg PO DAILY 09/25/20 sertraline 100 mg tablet 150 mg PO QHS 09/25/20 vitamin B complex 1 tablet PO DAILY 09/25/20 cholecalciferol (vitamin D3) 50 mcg (2,000 unit) capsule 50 mcg PO DAILY 11/05/22 buspirone 10 mg tablet 10 mg PO TID 12/07/22 meloxicam 15 mg tablet 15 mg PO DAILY PRN pain 12/07/22 omeprazole 20 mg capsule,delayed release 20 mg PO DAILY 12/07/22 losartan 100 mg tablet 100 mg PO DAILY 10/12/23 metoprolol succinate 25 mg tablet,extended release 24 hr 25 mg PO BID high blood pressure 10/12/23 amoxicillin 875 mg-potassium clavulanate 125 mg tablet 1 tab PO BID 5 days #10 tabs 10/14/23 artificial tears(myqlkzs-iwfkudyr-dahiwml) 0.1 %-0.3 %-0.2 % eye drops 1 drp EACH EYE BID PRN dry eyes #15 mL 10/14/23 fluticasone propionate 50 mcg/actuation nasal spray,suspension (Flonase Allergy Relief) 1 spray intranasal BID 30 days #16 grams 10/14/23
[2023-10-14] MEDS: oxyCODONE 5 MG Tablet PO (14:35)
[2023-10-14 15:45] VITALS: BP 165/73; PULSE 64; RESP 18; TEMP 37; O2SAT 98
== END 2023-10-14 16:03 | disposition home or self-care (01) | DRG 122 ==
LOC: ED 14:31 → MS3 14:45
PROVIDERS: Nurse Practitioner; Admitting Provider Internal Medicine; Emergency Provider Emergency Medicine; PCP Family Medicine; Visit Provider Hospitalist
DX: H05.013 Cellulitis of bilateral orbits (principal); E66.9 Obesity, unspecified; I10 Essential (primary) hypertension; F32.A Depression, unspecified; J32.4 Chronic pansinusitis; E78.00 Pure hypercholesterolemia, unspecified; K21.9 Gastro-esophageal reflux disease without esophagitis; H10.89 Other conjunctivitis; F41.9 Anxiety disorder, unspecified; Z68.37 Body mass index [BMI] 37.0-37.9, adult; N95.1 Menopausal and female climacteric states; Z87.891 Personal history of nicotine dependence
CPT/HCPCS: 36415; 70481; 80053; 83605; 84100; 85025; 85610; 87040; 99284; J7050; Q9967; A4216; J0295; J2405